=== PATIENT | female | born 1985 | race Caucasian/White ===

== ENCOUNTER 2019-03-06 02:53 | Emergency (ER) | payer MEDICAID ==
[~2019-03-06] VITALS: Ht 160 cm; Wt 68.0 kg
[2019-03-06 02:55] VITALS: BP_SYST 118
--- NOTE | 2019-03-06 02:55 | NUR ---
Patient to ER H1 for evaluation. Side rails up. Accompanied by Michael Mijares
--- NOTE | 2019-03-06 03:14 | NUR ---
ER Dr. Harmon at bedside examining patient.
[2019-03-06 03:20] VITALS: BP_SYST 118
--- NOTE | 2019-03-06 03:20 | NUR ---
Patient given written and verbal discharge instructions and verbalizes understanding. ER MD discussed with patient the results and treatment provided. Patient in stable condition. ID arm band removed. No Rx given. Patient educated on pain management and to follow up with PMD. Pain Scale 0. Opportunity for questions provided and answered. Medication side effect fact sheet provided.
== END 2019-03-06 03:20 ==
LOC: SED 02:53
DX: Z02.89 Encounter for other administrative examinations (principal); F32.9 Major depressive disorder, single episode, unspecified
CPT/HCPCS: 99283